=== PATIENT | female | born 1945 | race Caucasian/White ===

== ENCOUNTER 2024-10-11 07:30 | Inpatient (IN) ==
[2024-10-03 14:36] LABS: Appearance,Urine Clear (Clear); Bacteria,Urine Few /hpf (0); Bilirubin,Urine Negative (Negative); Color,Urine Yellow; Glucose,Urine (UA) Negative (Negative); Ketones,Urine Negative (Negative); Leukocyte Esterase,Urine Small /uL (Negative); Mucus,Urine Mod /hpf; Nitrate,Urine Negative (Negative); PH,Urine 5.5 (5.0-9.0); Protein,Urine 30 mg/dL (Negative); Specific Gravity,Urine 1.025 (1.000-1.035); Urine Blood Negative ery/mcL (Negative); Urine Squamous Epithelial Cell 13 /hpf (0-4); Urobilinogen,Urine Normal
[2024-10-03 14:48] LABS: Urine RBC 1 /hpf (0-3); Urine WBC 30 /hpf (0-4)
[2024-10-03 15:33] LABS: INR 0.9 (0.9-1.1); Prothrombin Time 13.1 sec (11.9-14.5)
[2024-10-11] MEDS: ACETAMINOPHEN 500 MG TABLET PO SCH (11:21)
[2024-10-11] MEDS: CELECOXIB 200 MG CAPSULE PO SCH (11:21)
[2024-10-11] MEDS: oxyCODONE 10 MG TAB.ER.12H PO SCH (11:21)
[2024-10-11] MEDS: PREGABALIN 75 MG CAPSULE PO SCH (11:22)
[2024-10-11] MEDS ORDERED: KETAMINE 50 MG/ML ML ONE (11:38)
[2024-10-11] MEDS ORDERED: PROPOFOL 200 MG/20 ML VIAL IV ONE (11:38)
[2024-10-11] MEDS ORDERED: TRANEXAMIC ACID 1,000 MG/10 ML VIAL ONE (11:39)
[2024-10-11] MEDS ORDERED: MAGNESIUM SULFATE 2 GM/50 ML BAG IV ONE (11:39)
[2024-10-11] MEDS ORDERED: LIDOCAINE 2% PF 5 ML VIAL ONE (11:39)
[2024-10-11] MEDS ORDERED: DEXAMETHASONE 10 MG/ML VIAL ONE (11:39)
[2024-10-11] MEDS ORDERED: ONDANSETRON 4 MG/2 ML VIAL ONE (11:39)
[2024-10-11] MEDS: ceFAZolin 2 GM in DEXTROSE 5% IN WATER 50 ML IV SCH (11:53)
[2024-10-11] MEDS ORDERED: PHENYLephrine 1 MG/10 ML SYRINGE (ANEST) ONE (12:32)
[2024-10-11] MEDS ORDERED: ePHEDrine 50 MG/5 ML SYRINGE (ANEST) IV ONE (12:44)
[2024-10-11] MEDS: 0.9 % SODIUM CHLORIDE 9 ML, KETOROLAC 30 MG, ROPIVACAINE HCL/PF 49.5 ML, EPINEPHrine 0.... IJ SCH (13:10)
[2024-10-11] MEDS ORDERED: IPRATROPIUM/ALBUTEROL 3 ML AMPUL.NEB NEB PRN (13:14)
[2024-10-11] MEDS ORDERED: NALOXONE HCL 0.4 MG/ML VIAL IV PRN (13:14)
[2024-10-11] MEDS ORDERED: MEPERIDINE 25 MG/ML VIAL IV PRN (13:14)
[2024-10-11] MEDS ORDERED: diphenhydrAMINE 50 MG/ML VIAL IV PRN (13:14)
[2024-10-11] MEDS ORDERED: ONDANSETRON 4 MG/2 ML VIAL IV PRN (13:14)
[2024-10-11] MEDS ORDERED: LACTATED RINGERS 250 ML IV PRN (13:14)
[2024-10-11] MEDS ORDERED: fentaNYL 100 MCG/2 ML VIAL IV PRN (13:14)
[2024-10-11] MEDS ORDERED: IBUPROFEN PO PRN (13:31)
[2024-10-11] MEDS ORDERED: ROPIVACAINE HCL/PF 30 ML VIAL IJ ONE (13:40)
[2024-10-11] MEDS: TRANEXAMIC ACID 1,000 MG/10 ML VIAL IV ONE (13:57)
[2024-10-11] MEDS: METHOCARBAMOL 1,000 MG/10 ML VIAL IV PRN (13:57)
[2024-10-11] MEDS ORDERED: 0.9 % SODIUM CHLORIDE 10 ML SYRINGE IV SCH (14:00)
[2024-10-11] MEDS: 0.45 % SODIUM CHLORIDE 1,000 ML IV SCH (14:34)
[2024-10-11] MEDS: 0.9 % SODIUM CHLORIDE 10 ML SYRINGE IV SCH (14:36)
[2024-10-11] MEDS: KETOROLAC 15 MG/ML VIAL IV SCH (17:48)
[2024-10-11] MEDS: LACTATED RINGERS 1,000 ML IV SCH (19:06)
[2024-10-11] MEDS: ceFAZolin 1 GM VIAL IV SCH (19:27)
[2024-10-11] MEDS: ASPIRIN 81 MG TAB.CHEW PO SCH (20:47)
[2024-10-11] MEDS: MAGNESIUM OXIDE 400 MG TABLET PO SCH (20:47)
[2024-10-11] MEDS: DOCUSATE SODIUM 100 MG CAPSULE PO SCH (20:48)
[2024-10-11] MEDS: HYDROcodone/APAP 10/325MG TABLET PO PRN (20:49)
[2024-10-12] MEDS: ACETAMINOPHEN 325 MG TABLET PO PRN (06:43)
[2024-10-12] MEDS: OMEPRAZOLE 20 MG CAPSULE PO SCH (06:43)
[2024-10-12] MEDS: FEXOFENADINE 180 MG TABLET PO SCH (08:09)
[2024-10-12] MEDS: VITAMIN D3 10 MCG TABLET PO SCH (08:10)
[2024-10-12] MEDS: FERROUS SULFATE 325 MG TABLET PO SCH (08:10)
[2024-10-12] MEDS: LISINOPRIL 10 MG TABLET PO SCH (08:10)
[2024-10-13] MEDS: MAGNESIUM HYDROXIDE 30 ML ORAL.SUSP PO PRN (03:43)
[2024-10-13] MEDS: POLYETHYLENE GLYCOL 3350 17 GM PACKET PO PRN (08:50)
== END 2024-10-14 16:36 | DRG 470 ==
LOC: EDSTATUS 08:15 → MEDSUR 09:30
PROVIDERS: ADMIT Physician Assistant Medical; ATTEND Orthopaedic Surgery